=== PATIENT | male | born 1975 | race Caucasian/White ===

== ENCOUNTER → 2018-07-19 07:56 | Outpatient (CLI) | payer OTHER, SELFPAY ==
--- NOTE | 2018-07-19 | DI.MRI.S_ITS ---
PROCEDURE: MR CERVICAL SPINE WO CON INDICATIONS: Cervicalgia TECHNIQUE: Noncontrast sagittal T1 spin echo and T2 fast spin echo, sagittal STIR, foraminal oblique sagittal T2 fast spin echo, and axial gradient echo or T2 fast spin echo through the cervical spine. COMPARISON: [facility], , SPINE CERVICAL MIN 4VW, 02/12/2015, 15:59. FINDINGS: Image quality: Excellent. Alignment and Curvature: There is loss of normal cervical lordosis. There is mild, grade 1 retrolisthesis of C3 on C4, C4 and C5, and C5 on C6. Bone Marrow: Marrow demonstrates normal overall signal. There is mild reactive signal within the endplates adjacent to the C3-C4, C4-C5, and C5-C6 intervertebral discs. Spinal Cord: Visualized spinal cord has normal size and signal. No cerebellar tonsillar herniation. Paraspinous Soft Tissues: No paravertebral masses. Prevertebral soft tissues are normal in thickness. C2-C3: Congenital canal stenosis. Small left paracentral protrusion. Mild canal stenosis. No foraminal stenosis. C3-C4: Mild disc height loss and desiccation.. Mild diffuse disc bulge. Congenital canal stenosis. Moderate facet and uncovertebral hypertrophy bilaterally. Severe canal stenosis. Mild cord flattening. Severe left and moderate right foraminal stenosis. Flattening of the left C4 nerve root. C4-C5: Mild disc height loss and desiccation. Mild diffuse disc bulge. Congenital canal stenosis. Moderate facet and uncovertebral hypertrophy bilaterally. Severe canal stenosis. Mild cord flattening. Severe bilateral foraminal stenosis with bilateral C5 nerve root flattening. C5-C6: Mild disc height loss and desiccation. Mild diffuse disc bulge. Congenital canal stenosis. Mild facet and uncovertebral hypertrophy bilaterally. Moderate to severe canal stenosis. Minimal cord flattening. Mild left and severe right foraminal stenosis. Right C6 nerve root flattening. C6-C7: Mild disc height loss and desiccation. Mild diffuse disc bulge. Mild facet and uncovertebral hypertrophy bilaterally. Mild canal stenosis. Mild left and moderate right foraminal stenosis. C7-T1: Normal appearance. IMPRESSION: 1. Diffuse congenital canal stenosis with superimposed disc and facet disease, as well as uncovertebral hypertrophy. 2. Multilevel canal stenoses, worst at C3-C4, C4-C5, and C5-C6, where there is cord flattening present. 3. Multilevel foraminal stenoses, worst on the left at C3-C4, bilaterally at C4-C5, and on the right at C5-C6, where there is associated intraforaminal nerve root flattening. Recommend correlation with clinical symptoms to ascertain relevance of these findings. Dictated by: Lorna Turner M.D. on 07/19/2018 at 16:20 Approved by: Lorna Turner M.D. on 07/19/2018 at 16:27
== END ==
PROVIDERS: PCP Preventive Medicine Public Health & General Preventive Medicine; Visit Provider Preventive Medicine Public Health & General Preventive Medicine
DX: M48.02 Spinal stenosis, cervical region (principal); M50.91 Cervical disc disorder, unspecified, high cervical region
CPT/HCPCS: 72141

== ENCOUNTER → 2024-03-14 08:10 | Outpatient (CLI) | payer OTHER, SELFPAY | PROVIDERS: PCP Preventive Medicine Public Health & General Preventive Medicine; Referring Provider Chiropractor; Visit Provider Chiropractor | DX: I10 Essential (primary) hypertension (principal); J06.9 Acute upper respiratory infection, unspecified; M13.80 Other specified arthritis, unspecified site; Z87.891 Personal history of nicotine dependence | CPT/HCPCS: 94060 ==

== ENCOUNTER → 2024-03-14 09:13 | Outpatient (CLI) | payer OTHER, SELFPAY ==
--- NOTE | 2024-03-14 09:17 | DI.ECHO.S_ITS ---
[facility] : : [address] : : [place] : : [id number] : : Phone: [phone] Echocardiogram Report + + :Name: RICK SCHROEDER Study Date: 03/14/2024 Height: 70 in : :[facility] ReadingLocation: Weight: 195 lb : : Gender: Male BSA: 2.1 m2 : :: 1975 Age: 48 yrs BP: 150/89 mmHg: :Reason For Study: HYPERTENSION : :Ordering Physician: TAMEKA, : :MAYA Performed By: Tyler Deshpande : :Referring: MAYA ENGLISH : + + Interpretation Summary 1) Normal left ventricular thickness, size, wall motion, and systolic function (EF 60-65%). 2) Normal right ventricular size and function. 3) No significant valvular abnormalities. 4) No prior Echo available for comparison. Procedure: A two-dimensional transthoracic echocardiogram with color flow and Doppler was performed. The study quality was technically good. There is no prior echocardiogram noted for this patient. The patient was in normal sinus rhythm during the exam. Left Ventricle: The left ventricle is normal in size. There is normal left ventricular wall thickness. There is no ventricular septal defect visualized. The ejection fraction is estimated to be 60-65%. There are no focal wall motion abnormalities. Diastolic parameters suggest probable normal left ventricular diastolic function and normal filling pressures. Right Ventricle: The right ventricle is normal in size and function. Atria: The left atrial size is normal. Right atrial size is normal. There is no Doppler evidence for an atrial septal defect. Mitral Valve: There is mild mitral annular calcification. There is no mitral regurgitation noted. Aortic Valve: The aortic valve is trileaflet. The aortic valve is slightly calcified. There is no aortic valve stenosis. No aortic regurgitation is present. Tricuspid Valve: The tricuspid valve leaflets are thin and pliable. No tricuspid regurgitation. Pulmonary artery pressures cannot be estimated because of the lack of a measurable TR jet velocity. Pulmonic Valve: The pulmonic valve is not well seen, but is grossly normal. There is no pulmonic valvular regurgitation. Great Vessels: The aortic root is normal size. The dimensions of the ascending aorta are normal. The pulmonary artery is normal size. The IVC is of normal diameter and collapses greater than 50% with a sniff. This suggests a low right atrial pressure of 3 mm Hg. Pericardium/ Pleura There is no pericardial effusion. There is no pleural effusion. MMode/2D Measurements & Calculations LVIDd: 5.4 cm LVOT diam: 2.2 cm LVIDs: 3.2 cm Ao root diam: 2.9 cm FS: 41.9 % asc Aorta Diam: 2.8 cm EPSS: 0.49 cm Ao Arch Diam (Prox Trans): 2.1 cm IVSd: 0.85 cm LVPWd: 0.91 cm LV herrera. diameter/BSA (cm/m^2): 2.6 LV sys. diameter/BSA (cm/m^2): 1.5 LA A2 area: 22.2 cm2 RA long axis: 5.2 cm LA A4 area: 18.5 cm2 RA area: 16.7 cm2 LA length (vol): 5.9 cm RA vol: 45.5 ml LA vol: 59.5 ml RA : 22.0 ml/m2 LA vol index: 28.8 ml/m2 IVC diam: 2.1 cm RVD1 (basal): 3.5 cm RVD2 (mid): 3.2 cm TAPSE: 2.7 cm Doppler Measurements & Calculations Ao V2 max: 194.3 cm/sec LVOT Max Yash: 135.6 cm/sec Ao V2 mean: 141.2 cm/sec LV V1 max P.4 mmHg Ao max P.1 mmHg LV V1 VTI: 25.9 cm Ao mean P.8 mmHg JEROMY(I,D): 2.5 cm2 Ao V2 VTI: 38.7 cm JEROMY(V,D): 2.6 cm2 sev ratio: 0.67 JEROMY indexed to BSA (cm^2/m^2): 1.2 MV E max yash: 124.1 cm/sec PA V2 max: 107.0 cm/sec MV A max yash: 63.3 cm/sec PA V2 mean: 75.7 cm/sec MV E/A: 2.0 PA mean P.6 mmHg Med Peak E' Yash: 11.8 cm/sec PA pr(Accel): 20.8 mmHg E/E' med: 10.5 Lat Peak E' Yash: 11.8 cm/sec E/E' lat: 10.5 E/e' average: 10.5 MV dec time: 0.14 sec SV(LVOT): 97.6 ml Reading Physician:03:[id number] PM
--- NOTE | 2024-03-14 09:20 | DI.RAD.S_ITS ---
PROCEDURE: XR CERVICAL SPINE 2V OR 3V INDICATIONS: ARTHRITIS TECHNIQUE: 3 view(s) of the cervical spine were acquired. COMPARISON: None. FINDINGS: Bones: No fractures or dislocations to the C7 level. C3-C4 and C4-C5 disc arthroplasty. No findings concerning for hardware complication. Mild background degenerative changes are seen. Straightening of the normal cervical lordosis. The lateral masses of C1 appear intact on the odontoid view. No suspicious bony lesions. Soft tissues: No prevertebral soft tissue swelling. IMPRESSION: Mild degenerative changes of the cervical spine with C3-C4 and C4-C5 disc arthroplasty. No evidence of hardware complication. Dictated by: Benjamin Dickey M.D. on 03/14/2024 at 13:36 Approved by: Benjamin Dickey M.D. on 03/14/2024 at 13:57
--- NOTE | 2024-03-14 09:20 | DI.RAD.S_ITS ---
PROCEDURE: XR CHEST 2V INDICATIONS: URI TECHNIQUE: 2 views of the chest were acquired. COMPARISON: None. FINDINGS: Surgical changes and devices: None. Lungs and pleura: Lungs are clear. No pleural effusions or pneumothorax. Mediastinum: Mediastinal contours are normal. Heart size is normal. Bones and chest wall: No suspicious bony abnormalities. Soft tissues appear unremarkable. IMPRESSION: No acute cardiopulmonary abnormality is seen. Dictated by: Benjamin Dickey M.D. on 03/14/2024 at 13:35 Approved by: Benjamin Dickey M.D. on 03/14/2024 at 13:35
--- NOTE | 2024-03-14 09:21 | DI.RAD.S_ITS ---
PROCEDURE: XR ELBOW LT 2V INDICATIONS: ARTHRITIS TECHNIQUE: 2 views of the elbow were acquired. COMPARISON: None. FINDINGS: Bones: No fractures or dislocations. Mild osteophytosis. No significant joint space narrowing No suspicious bony lesions. Soft tissues: No elbow joint effusion. No suspicious soft tissue calcifications. IMPRESSION: Mild osteophytosis. No significant joint space narrowing. Dictated by: Benjamin Dickey M.D. on 03/14/2024 at 13:58 Approved by: Benjamin Dickey M.D. on 03/14/2024 at 13:58
== END ==
LOC: ECHO 09:16
PROVIDERS: PCP Preventive Medicine Public Health & General Preventive Medicine; Referring Provider Chiropractor; Visit Provider Chiropractor
DX: I34.81 Nonrheumatic mitral (valve) annulus calcification (principal); M47.812 Spondylosis without myelopathy or radiculopathy, cervical region; M25.722 Osteophyte, left elbow; I10 Essential (primary) hypertension; J06.9 Acute upper respiratory infection, unspecified; M13.80 Other specified arthritis, unspecified site
CPT/HCPCS: 71046; 72040; 73070; 93306; 94060